=== PATIENT | male | born 1955 | race Caucasian/White ===

== ENCOUNTER 2020-08-14 15:53 | Inpatient (IN) | payer OTHER, SELFPAY ==
[~2020-08-14] VITALS: Ht 185.4 cm; Wt 102.3 kg
[2020-08-14] MEDS ORDERED: SODIUM CHLORIDE FLUSH 10ML SYR IVF ONE (16:00)
--- NOTE | 2020-08-14 16:01 | NUR ---
PG CODE CARDIAC @ 1602 PG CARDS @ 1603
[2020-08-14] MEDS ORDERED: MORPHINE SULFATE 4 MG/ML, 1ML ONE (16:08)
[2020-08-14] MEDS ORDERED: ONDANSETRON 2MG/ML, 2ML ONE ×2 (16:08→16:13)
[2020-08-14] MEDS ORDERED: NITROGLYCERIN SINGLE TAB 0.4 MG SL ONE ×2 (16:10→16:30)
[2020-08-14] MEDS ORDERED: LIDOCAINE 2%, 20ML ONE (16:12)
[2020-08-14] MEDS ORDERED: MIDAZOLAM 1 MG/ML, 5ML ONE ×2 (16:12→17:08)
[2020-08-14] MEDS ORDERED: BIVALIRUDIN 250 MG ONE ×2 (16:12→16:59)
[2020-08-14] MEDS ORDERED: FENTANYL PF 250 MCG/5ML ONE (16:12)
[2020-08-14 16:28] LABS: ALANINE AMINOTRANSFERASE 35 U/L (12-78); ALBUMIN 4.5 g/dL (3.4-5.0); ANION GAP 7 mmol/L (5-15); CALCIUM 9.7 mg/dL (8.5-10.1); CHLORIDE 101 mmol/L (98-107); CREATININE 1.21 mg/dL (0.7-1.3)
[2020-08-14] MEDS ORDERED: ASPIRIN 81 MG TABLET CHEW ONE (16:28)
[2020-08-14] MEDS ORDERED: ZOLPIDEM 5MG TABLET PO PRN (16:30)
[2020-08-14] MEDS ORDERED: ONDANSETRON 2MG/ML, 2ML IVPush ONE (16:30)
[2020-08-14] MEDS ORDERED: morphine SULFATE 10 MG/ML, 1ML IVPush ONE (16:30)
[2020-08-14] MEDS ORDERED: ASPIRIN 81 MG TABLET CHEW PO ONE (16:30)
[2020-08-14] MEDS ORDERED: NITROGLYCERIN 0.4 MG BOTTLE (25 TABS) SL PRN (16:30)
--- NOTE | 2020-08-14 16:31 | NUR ---
LATE ENTRY FOR CODE CARDIAC EVENTS. PT TO ROOM STRAIGHT BACK FROM TRIAGE VIA WC. DR TURCIOS AT BEDSIDE. PT W/ ONSET OF LEFT SIDED CP APPROX 1300 TODAY PT STATES "I THOUGHT IT WAS HEART BURN" PAIN CONTINUED WITH +SOB AND PTS BROUGHT HIM TO HOSPITAL.
[2020-08-14 16:32] LABS: ALKALINE PHOSPHATASE 121 U/L (45-117); BILIRUBIN,TOTAL 0.5 mg/dL (0.2-1.0)
[2020-08-14 16:33] LABS: BASOPHILS % (AUTO) 1 % (0-1); EOSINOPHILS % (AUTO) 0 % (1-7); LYMPHOCYTES % (AUTO) 10 % (22-44); MEAN CORPUSCULAR HEMOGLOBIN 30.4 pg (27.5-34.5); MEAN CORPUSCULAR HGB CONC 34.6 g/dL (33.2-36.2); MEAN PLATELET VOLUME 8.1 fL (7.4-10.4); MONOCYTES % (AUTO) 5 % (2-9); NEUTROPHILS % (AUTO) 83 % (42-75); PLATELET COUNT 394 x10^3/uL (130-400); RED BLOOD COUNT 6.06 x10^6/uL (4.38-5.82); RED CELL DISTRIBUTION WIDTH 18.5 % (9.4-14.8)
--- NOTE | 2020-08-14 16:33 | NUR ---
PT TO PSYCHOLOGY TEACHER, ON MONITOR WITH RN X 3 ESCORT. SBAR RPT TO PSYCHOLOGY TEACHER RN.
[2020-08-14] MEDS ORDERED: AMIODARONE 50 MG/ML, 3ML ONE (16:38)
[2020-08-14 16:42] LABS: TROPONIN I 0.306 ng/mL (0.000-0.045)
[2020-08-14 17:00] LABS: MD SCAN
[2020-08-14] MEDS ORDERED: AMIODARONE 450 MG in DEXTROSE 5% 241 ML IV PRN (17:00)
[2020-08-14] MEDS ORDERED: FILTER 0.22 MICRON FOR AMIODARONE IV PRN (17:00)
[2020-08-14] MEDS ORDERED: TICAGRELOR 90 MG TABLET ONE (17:22)
[2020-08-14] MEDS ORDERED: BIVALIRUDIN 250 MG in SODIUM CHLORIDE 0.9% 50 ML IV SCH ×2 (17:45→18:00)
[2020-08-14] MEDS: SODIUM CHLORIDE 0.9% 1,000 ML IV SCH (18:00)
[2020-08-14] MEDS ORDERED: BIVALIRUDIN 500 MG in DEXTROSE 5% 100 ML IV ONE (18:28)
[2020-08-14] MEDS: METOPROLOL TARTRATE 25 MG TAB PO SCH ×2 (21:00→21:35)
[2020-08-14] MEDS: ATORVASTATIN 80 MG TABLET PO SCH (21:35)
[2020-08-14] MEDS: TICAGRELOR 90 MG TABLET PO SCH (21:35)
[2020-08-15] MEDS: SODIUM CHLORIDE 0.9% 1,000 ML IV SCH (00:13)
[2020-08-15 04:58] LABS: ANION GAP 6 mmol/L (5-15); CALCIUM 8.2 mg/dL (8.5-10.1); CHLORIDE 105 mmol/L (98-107)
[2020-08-15 04:59] LABS: CREATININE 0.88 mg/dL (0.7-1.3)
[2020-08-15] MEDS ORDERED: ASPIRIN 81 MG TABLET EC PO SCH ×2 (06:00→09:00)
[2020-08-15] MEDS: METOPROLOL TARTRATE 25 MG TAB PO SCH ×2 (07:44→20:06)
[2020-08-15] MEDS: TICAGRELOR 90 MG TABLET PO SCH (07:44)
[2020-08-15] MEDS ORDERED: DOPAMINE/D5W PMX 400 MG/250 ML ONE (09:53)
[2020-08-15] MEDS ORDERED: POTASSIUM CHLORIDE 20 MEQ TAB.ER.PRT PO ONE (14:00)
[2020-08-15] MEDS ORDERED: MAGNESIUM SULFATE PMX 2GM/50ML 50 ML IV ONE (14:00)
[2020-08-15] MEDS ORDERED: ONDANSETRON 2MG/ML, 2ML ONE (17:36)
[2020-08-15] MEDS ORDERED: ONDANSETRON 2MG/ML, 2ML IVPush PRN (18:00)
[2020-08-15] MEDS: ATORVASTATIN 80 MG TABLET PO SCH (20:06)
[2020-08-15 20:07] VITALS: BP 123/71
[2020-08-16 01:33] VITALS: BP 126/64
[2020-08-16 04:00] LABS: BASOPHILS % (AUTO) 1 % (0-1); EOSINOPHILS % (AUTO) 0 % (1-7); LYMPHOCYTES % (AUTO) 11 % (22-44); MEAN CORPUSCULAR HEMOGLOBIN 29.8 pg (27.5-34.5); MEAN CORPUSCULAR HGB CONC 33.9 g/dL (33.2-36.2); MEAN PLATELET VOLUME 7.9 fL (7.4-10.4); MONOCYTES % (AUTO) 12 % (2-9); NEUTROPHILS % (AUTO) 76 % (42-75); PLATELET COUNT 308 x10^3/uL (130-400); RED BLOOD COUNT 5.32 x10^6/uL (4.38-5.82); RED CELL DISTRIBUTION WIDTH 18.5 % (9.4-14.8)
[2020-08-16 04:11] LABS: ANION GAP 3 mmol/L (5-15); CALCIUM 8.6 mg/dL (8.5-10.1); CHLORIDE 106 mmol/L (98-107); CREATININE 1.25 mg/dL (0.7-1.3)
[2020-08-16 04:24] LABS: MD SCAN
[2020-08-16] MEDS ORDERED: ASPIRIN 81 MG TABLET EC PO SCH (06:00)
[2020-08-16 08:51] VITALS: BP 140/83
[2020-08-16] MEDS: METOPROLOL TARTRATE 25 MG TAB PO SCH (08:53)
[2020-08-16] MEDS ORDERED: CLOP75TA PO (08:55)
[2020-08-16] MEDS ORDERED: ASPI81TA45 PO (08:55)
[2020-08-16] MEDS ORDERED: METO25TA35 PO (08:55)
[2020-08-16] MEDS ORDERED: ATOR-2 PO (08:55)
[2020-08-16] MEDS ORDERED: CLOPIDOGREL 75 MG TABLET PO SCH (09:00)
== END 2020-08-16 13:22 | disposition home or self-care (01) | DRG 247 ==
LOC: ED 16:20 → EDIP 16:31 → CCU 17:52 → 5SO 08-16 05:28 → DCLOUNGE 08-16 13:18
PROVIDERS: ADMIT Internal Medicine Cardiovascular Disease; ATTEND Internal Medicine Cardiovascular Disease
PROC: 027035Z Dilation of Coronary Artery, One Artery with Two Drug-eluting Intraluminal Devices, Percutaneous Approach (ICD-10-PCS; principal; 2020-08-14)
PROC: 4A023N7 Measurement of Cardiac Sampling and Pressure, Left Heart, Percutaneous Approach (ICD-10-PCS; 2020-08-14)
PROC: B2111ZZ Fluoroscopy of Multiple Coronary Arteries using Low Osmolar Contrast (ICD-10-PCS; 2020-08-14)
DX: I21.19 ST elevation (STEMI) myocardial infarction involving other coronary artery of inferior wall (principal); E78.5 Hyperlipidemia, unspecified; E87.6 Hypokalemia; F12.90 Cannabis use, unspecified, uncomplicated; I25.10 Atherosclerotic heart disease of native coronary artery without angina pectoris; Z20.822 Contact with and (suspected) exposure to COVID-19; R00.0 Tachycardia, unspecified; Z88.0 Allergy status to penicillin
CPT/HCPCS: 36415; 93454; J3490; 71045; 80047; 80048; 80053; 83735; 84484; 85025; 87081; 87635; 93005; 93306; 99156; 99157; C1760; C1769; C1894; G0378; J0583; J1265; J2250; J2405; J3010; J7060; C1725; C1874; C1887; J0282; J2270; J3475; J7030; Q9967

== ENCOUNTER → 2020-10-12 | Outpatient (CLI) | payer OTHER, BC ==
[~2020-10-12] MED LIST: ASPI81TA45 PO; ATOR-2 PO; CLOP75TA PO; METO25TA35 PO
== END | disposition home or self-care (01) ==
LOC: CVU 08:23
PROVIDERS: ATTEND Internal Medicine Cardiovascular Disease
DX: I34.0 Nonrheumatic mitral (valve) insufficiency (principal); I11.9 Hypertensive heart disease without heart failure; I21.11 ST elevation (STEMI) myocardial infarction involving right coronary artery
CPT/HCPCS: 93306

== ENCOUNTER → 2021-05-08 | Outpatient (CLI) | payer BC | END | disposition home or self-care (01) | LOC: RAD 10:21 | PROVIDERS: ATTEND Family Medicine | DX: R10.11 Right upper quadrant pain (principal) ==